=== PATIENT | male | born 1985 | race African-American/Black ===

== ENCOUNTER 2018-11-29 10:50 | Emergency (ER) | payer SELFPAY ==
--- NOTE | 2018-11-29 11:33 | RAD ---
CHEST 2 VIEWS: HISTORY: Spitting up blood. COMPARISON: Radiograph 2011. FINDINGS: Lungs are clear. No pneumothorax. No effusion. No radiopaque foreign object. No acute osseous abn ormality. IMPRESSION: No acute intrathoracic abnormality. POS: HOME
[2018-11-29 11:45] LABS: Hemoglobin 14.7 g/dL (14.0-18.0); Mean Corpuscular Hemoglobin 34.4 pg (27.0-31.0); Mean Platelet Volume 7.8 fL (7.4-10.4); Platelet Count 202 thou/uL (130-400); RBC Distribution Width 11.7 % (11.5-14.5); Red Blood Cell (RBC) Count 4.29 mill/uL (4.70-6.10)
[2018-11-29 12:03] LABS: Eosinophils 2 % (0-10); Lymphocytes 45 % (21-51); MDiff Complete? YES; Monocytes 12 % (0-10); Neutrophil 35 % (42-75); Platelet Morphology Comment Appears Adequate; Reactive Lymphocytes 6 % (0-10)
== END 2018-11-29 12:58 | disposition home or self-care (01) ==
LOC: ERS 10:50
DX: J06.9 Acute upper respiratory infection, unspecified (principal)
CPT/HCPCS: 36415; 71046; 85025